=== PATIENT | male | born 1980 | race African-American/Black ===

== ENCOUNTER 2021-12-24 14:10 | Emergency (ER) | payer OTHER ==
[2021-12-24 14:29] VITALS: BP 150/85; PULSE 96; TEMP 99.1; BMI 30.7
[2021-12-24] MEDS ORDERED: DIPHTH,PERTUSS(ACELL),TET 0.5 ML DISP.SYRIN IM ONE ×2 (14:56→15:17)
== END 2021-12-24 15:35 | disposition home or self-care (01) ==
LOC: JER 14:10 → JERFT 14:10
PROC: 3E0234Z Introduction of Serum, Toxoid and Vaccine into Muscle, Percutaneous Approach (ICD-10-PCS; principal; 2021-12-24)
DX: S61.512A Laceration without foreign body of left wrist, initial encounter (principal); W26.8XXA Contact with other sharp object(s), not elsewhere classified, initial encounter; Y93.H3 Activity, building and construction
CPT/HCPCS: 90471; 90715; 99284-25

== ENCOUNTER 2022-01-01 11:48 | Emergency (ER) | payer OTHER ==
[2022-01-01 11:52] VITALS: BP 152/106; PULSE 86; TEMP 97; BMI 30.7
== END 2022-01-01 13:09 | disposition home or self-care (01) ==
LOC: JERFT 11:48
DX: S61.512A Laceration without foreign body of left wrist, initial encounter (principal); Y99.9 Unspecified external cause status; Z48.02 Encounter for removal of sutures
CPT/HCPCS: 99281-25